=== PATIENT | male | born 1960 | race Caucasian/White ===

== ENCOUNTER 2018-04-06 10:54 | Emergency (ER) | payer OTHER, BC ==
[~2018-04-06] VITALS: Ht 182.8 cm; Wt 81.6 kg
[~2018-04-06 10:54] MED LIST: BACTRIM DS 8001 TA1 PO; CLARITIN10 MG PO; EPI EZ PEN1 MG/ML IM; KEFLEX500 MG PO; MEDROL DOSEPAK4 MG PO; VICODIN 5/500 505 MG PO
== END 2018-04-06 13:41 | disposition home or self-care (01) ==
LOC: ED 10:54
DX: S63.91XA Sprain of unspecified part of right wrist and hand, initial encounter (principal); W19.XXXA Unspecified fall, initial encounter; Y93.89 Activity, other specified; Y92.69 Other specified industrial and construction area as the place of occurrence of the external cause; Y99.8 Other external cause status

== ENCOUNTER 2019-10-27 07:05 | Emergency (ER) | payer BC ==
[~2019-10-27] VITALS: Ht 182.8 cm; Wt 81.6 kg
== END 2019-10-27 08:30 | disposition home or self-care (01) ==
LOC: ED 07:05
DX: M79.89 Other specified soft tissue disorders (principal); F17.200 Nicotine dependence, unspecified, uncomplicated; Z91.040 Latex allergy status

== ENCOUNTER → 2019-10-28 | Outpatient (CLI) | payer BC ==
[2019-10-28 15:22] LABS: BASO % 0.2 % (0.0-1.0); EOS # 0.2 10*3/uL (0.0-0.4); EOS % 1.5 % (1.0-4.0); HEMATOCRIT 44.8 % (42.0-52.0); LYMPH # 1.3 10*3/uL (1.3-4.4); LYMPH % 12.2 % (27.0-41.0); MEAN CELL VOLUME 92.8 fl (80.0-94.0); MEAN CORPUSCULAR HGB 30.6 pg (27.0-31.0); MEAN PLATELET VOLUME 8.9 fl (9.6-12.3); MONO # 0.7 10*3/uL (0.1-1.0); MONO % 6.9 % (3.0-9.0); NEUT # 8.5 10*3/uL (2.3-7.9); NEUT % 78.8 % (47.0-73.0); PLATELET COUNT AUTOMATED 342 10*3/uL (130-400); RED BLOOD COUNT 4.83 10*6/uL (4.50-5.90); RED CELL DISTRI WIDTH 11.9 % (0-14.5); WHITE BLOOD COUNT 10.7 10*3/uL (4.8-10.8)
[2019-10-28 16:58] LABS: BODY FLUID WBC 28650 /uL
[2019-10-28 17:13] LABS: BF LYMPHOCYTES 2 %; BF MACROPHAGES 6 %; BF NEUTROPHILS 92 %
[2019-10-28 17:15] LABS: URIC ACID 4.1 mg/dL (3.5-7.2)
[2019-10-29 06:10] LABS: HEP B CORE AB, IGM Negative (Negative); HEPATITIS B SURFACE AG Negative (Negative); HEPATITIS C VIRUS ANTIBODY <0.1 s/co (0.0-0.9)
[2019-10-29 08:06] LABS: RHEUMATOID ARTHRITIS FACTOR 23.7 IU/mL (0.0-13.9)
[2019-10-29 12:08] LABS: ANTI-RNP ANTIBODIES 0.2 AI (0.0-0.9)
[2019-10-30 00:03] LABS: LUPUS DRVVT 43.6 sec (0.0-47.0)
[2019-10-30 01:03] LABS: LUPUS REFLEX INTERPRETATION Comment: (.)
[2019-10-30 02:05] LABS: CCP ANTIBODIES IGG/IGA 5 units (0-19)
[2019-10-30 11:08] LABS: ACID FAST SPEC PROCESSING Direct Inoculation (.)
[2019-11-03 19:07] LABS: HLA-B27 ANTIGEN Negative (.)
== END | disposition home or self-care (01) ==
LOC: LAB 14:36
PROVIDERS: Orthopaedic Surgery
DX: I10 Essential (primary) hypertension (principal); M25.462 Effusion, left knee; E78.5 Hyperlipidemia, unspecified

== ENCOUNTER 2021-06-11 08:22 | Emergency (ER) | payer BC ==
[~2021-06-11] VITALS: Wt 74.8 kg
== END 2021-06-11 09:08 | disposition home or self-care (01) ==
LOC: ED 08:22
DX: B34.9 Viral infection, unspecified (principal); Z20.822 Contact with and (suspected) exposure to COVID-19

== ENCOUNTER → 2021-12-12 | Outpatient (CLI) | payer BC | END | disposition home or self-care (01) | LOC: CT 09:00 | PROVIDERS: ATTEND Specialist | DX: R22.1 Localized swelling, mass and lump, neck (principal) ==

== ENCOUNTER → 2022-07-31 | Outpatient (CLI) | payer BC ==
[~2022-07-31] MED LIST changes: +AMBIEN10 M1 PO; +FINASTERIDE5 M1 PO; +LIPITOR10 MG PO; +PRAVASTATIN SOD40 MG PO; +PROTONIX40 MG PO; +TERAZOSIN HCL2 M1 PO
== END | disposition home or self-care (01) ==
LOC: CARD 00:04
PROVIDERS: ATTEND Internal Medicine Cardiovascular Disease
DX: I10 Essential (primary) hypertension (principal); R53.83 Other fatigue; R93.89 Abnormal findings on diagnostic imaging of other specified body structures; Z82.49 Family history of ischemic heart disease and other diseases of the circulatory system; Z87.891 Personal history of nicotine dependence

== ENCOUNTER → 2023-11-21 | Outpatient (CLI) | payer BC | END | disposition home or self-care (01) | LOC: US 02:44 | PROVIDERS: ATTEND Family Medicine | DX: K76.0 Fatty (change of) liver, not elsewhere classified (principal); N42.89 Other specified disorders of prostate ==